=== PATIENT | female | born 1965 | race Caucasian/White ===

== ENCOUNTER 2023-01-10 14:49 | Emergency (ER) | payer MEDICAID, SELFPAY ==
[2023-01-10 15:15] VITALS: BP 141/81; PULSE 91; RESP 18; TEMP 36.6; O2SAT 98; BMI 17.8
--- NOTE | 2023-01-10 15:20 | XR_ITS ---
FINAL REPORT CLINICAL HISTORY: HIT IT TWO WEEKS AGO with a metal pet food bowl. FINDINGS: LEFT TIBIA AND FIBULA There is no acute fracture or dislocation. The joint spaces are intact. There is no soft tissue abnormality. IMPRESSION: No acute fracture Reviewed, Interpreted and Dictated by Josh Azul III, MD Transcribed by Yulia Costa Authenticated and [facility]
--- NOTE | 2023-01-10 15:27 | CA_ITS ---
FINAL REPORT TECHNIQUE: Ultrasound images of the deep venous system were obtained from the left groin to the calf veins. CLINICAL HISTORY: pain and edema in calf hx of DVT, Knot on lt mckinley after injury. COMPARISON: None FINDINGS: The deep venous system is normally compressible. Normal flow is identified. IMPRESSION: No evidence of left lower extremity DVT. Reviewed, Interpreted and Dictated by Josh Azul III, MD Transcribed by Verito Medina Authenticated and [facility]
--- NOTE | 2023-01-10 15:31 | EXP.UTC ---
Discharge Plan Disposition Patient Disposition: Home, Self-Care Condition: Good Prescriptions Prescriptions: No Action ketorolac 10 MG tablet 10 mg PO Q6H 5 Days Qty: 20 0RF Referrals Follow up/Referrals: Provider,Referral, MD [Primary Care Provider] - See instructions Activity Restrictions/Add. Instructions Additional Instructions/Restrictions: *weight bearing as tolerated *RICE, Rest the extremity, Ice 15-20 minutes 3-4 times daily, Compress- wear the benito wrap as discussed as much as possible to help reduce swelling and pain, Elevate the extremity when at rest *Benito wrap is for support and help control swelling, use it except in the shower. Be sure that is not to tight but not to loose either *Elevate when resting? *Ibuprofen 600-800mg every 6-8 hours as needed for pain an inflammation if you can take it . If need something more can take Tylenol in between doses of Ibuprofen to help Immediately follow up with your family doctor for new or worsening of symptoms, or no noticeable improvement over the next 3-5 days Clinical Impressions Clinical Impression: Contusion of leg, left Qualifiers: Encounter type: initial encounter Qualified Code(s): S80.12XA - Contusion of left lower leg, initial encounter Instructions Patient Instructions: Contusion, DI for Contusion, How To Perform RICE (Rest, Ice, Compress, Elevate) Discharge ED Provider: Tamia Valenzuela [facility] General Stated complaint: AO@home 12/27 LT leg pain w/ knot Mode of Arrival: Ambulatory Source of Information: Patient Limitations: No Limitations Time Seen by Provider: 01/10/23 15:31 Description of Symptoms (Recalled from Triage Doc. by RN): PATIENT C/O BRUISED KNOT TO LEFT MCKINLEY AFTER HITTING IT ON A METAL DOG BOWL 2 WEEKS AGO HEENT Symptoms (Recalled from RN notes): No Resp Symptoms (Recalled from RN notes): No Skin Symptoms (Recalled from RN notes): No MS Symptoms (Recalled from RN notes): Yes Functional Status (Recalled from RN notes): WNL History of Present Illness Provider Complaint: Patient states that she was trying to smack a metal bowl on the floor to stop her cats from fighting and it came back and hit her in the left mckinley area States that was two weeks ago and she is still having pain in the area with raised area on mckinley also having pain and tightness in calf area concerned she may have a DVT states that she has had one before and feels similar Related Data Previous Rx's Medication Instructions Recorded ketorolac 10 mg tablet 10 mg PO Q6H 5 days #20 tabs 10/09/18 Allergies Allergy/AdvReac Type Severity Reaction Status Date / Time citalopram [CITALOPRAM] Allergy Unknown NA-NAUSEA/V Verified 10/09/18 14:16 OMITING diclofenac [DICLOFENAC] Allergy Unknown RASH, SICK Verified 10/09/18 14:16 Sulfa (Sulfonamide Allergy Unknown SWELLS Verified 10/09/18 14:16 Antibiotics) THROAT [SULFA (SULFONAMIDE ANTIBIOTICS)] sulindac [SULINDAC] Allergy Unknown SICK Verified 10/09/18 14:16 Worker's Comp Is this a Worker's Comp case?: No [facility] Disclaimer: The information contained in this section may have been updated after the patient was seen, as this information can be updated by other users. Medical History (Updated 01/10/23 @ 16:22 by Tamia Valenzuela APRN) Anxiety Asthma COPD (chronic obstructive pulmonary disease) Depression History of anemia History of gastroesophageal reflux (GERD) Hyperlipidemia Hypertension Kidney stone Migraine Prediabetes Thyroid disease Urinary tract infection Surgical History (Updated 01/10/23 @ 15:31 by Bridget Clark RN) History of hysterectomy History of tonsillectomy Social History Smoking Status: Unknown if ever smoked alcohol intake: never current occupational status: other Travel in the last 8 weeks: None ROS Obtained: Yes All systems reviewed & no additional complaints except as documented and Yes Systems reviewed as appropriate & no addit
[2023-01-10 16:50] VITALS: BP 141/81; PULSE 91; RESP 18; TEMP 36.6; O2SAT 98
== END 2023-01-10 16:52 | disposition home or self-care (01) ==
PROVIDERS: Emergency Provider Nurse Practitioner
DX: S80.12XA Contusion of left lower leg, initial encounter (principal); J44.9 Chronic obstructive pulmonary disease, unspecified; I10 Essential (primary) hypertension; E78.5 Hyperlipidemia, unspecified; E03.9 Hypothyroidism, unspecified; F41.9 Anxiety disorder, unspecified; F32.A Depression, unspecified; W22.8XXA Striking against or struck by other objects, initial encounter
CPT/HCPCS: 73590; 93971; 99204; 99212; G0463

== ENCOUNTER 2023-11-19 11:38 | Emergency (ER) | payer MEDICAID, SELFPAY ==
[2023-11-19 12:10] VITALS: BP 138/98; PULSE 74; RESP 20; TEMP 36.8; O2SAT 99; BMI 20.2
[2023-11-19 12:37] VITALS: BP 138/98; PULSE 74; RESP 20; TEMP 36.8; O2SAT 99
--- NOTE | 2023-11-19 12:41 | EXP.UTC ---
Discharge Plan Disposition Patient Disposition: Home, Self-Care Condition: Good Prescriptions Prescriptions: New doxycycline hyclate 100 mg tablet 100 mg PO BID Qty: 20 0RF No Action atorvastatin 20 mg tablet 20 mg PO DAILY Patient Comments: TAKE 1/2 (ONE-HALF) TABLET BY MOUTH ONCE DAILY famotidine 40 mg tablet 40 mg PO DAILY Patient Comments: TAKE 1 TABLET BY MOUTH NIGHTLY midodrine 5 mg tablet 5 mg PO DAILY Patient Comments: TAKE 1 TABLET BY MOUTH TWICE DAILY pantoprazole 40 mg tablet,delayed release (DR/EC) 40 mg PO DAILY Patient Comments: TAKE 1 TABLET BY MOUTH ONCE DAILY Referrals Follow up/Referrals: Provider,Referral, MD [Primary Care Provider] - See instructions Activity Restrictions/Add. Instructions Additional Instructions/Restrictions: Seperate your doses of pantoprazole and doxy by at least 1 hour Take medication as prescribed Follow up with your Family Doctor if no improvement or any worsening of symptoms Return if needed Straight to ER if any life threatening symptoms Clinical Impressions Clinical Impression: Infected tick bite Instructions Patient Instructions: How to Remove a Tick, Protect Yourself from Tickborne Illnesses, Doxycycline Discharge ED Provider: Tamia Valenzuela [facility] General Stated complaint: infected tick bite, upper R inner thigh Mode of Arrival: Ambulatory Source of Information: Patient Limitations: No Limitations Time Seen by Provider: 11/19/23 12:41 Description of Symptoms (Recalled from Triage Doc. by RN): PATIENT C/O TICK BITE TO RIGHT INNER THIGH SINCE TUESDAY HEENT Symptoms (Recalled from RN notes): No Resp Symptoms (Recalled from RN notes): No Skin Symptoms (Recalled from RN notes): Yes MS Symptoms (Recalled from RN notes): No Functional Status (Recalled from RN notes): WNL History of Present Illness Provider Complaint: Patient states that she has hx of lyme disease States that she had a tick bite on her right inner thigh on Tuesday States she didnt find it till and by that time she was already red from the bite States that she thought it would get better but hasnt so she came in to get some antibiotics to help Related Data Home Medications Medication Instructions Recorded Confirmed atorvastatin 20 mg tablet 20 mg PO DAILY 11/19/23 11/19/23 famotidine 40 mg tablet 40 mg PO DAILY 11/19/23 11/19/23 midodrine 5 mg tablet 5 mg PO DAILY 11/19/23 11/19/23 pantoprazole 40 mg tablet,delayed 40 mg PO DAILY 11/19/23 11/19/23 release Previous Rx's Medication Instructions Recorded doxycycline hyclate 100 mg tablet 100 mg PO BID #20 tabs 11/19/23 Allergies Allergy/AdvReac Type Severity Reaction Status Date / Time citalopram [CITALOPRAM] Allergy Unknown NA-NAUSEA/V Verified 10/09/18 14:16 OMITING diclofenac [DICLOFENAC] Allergy Unknown RASH, SICK Verified 10/09/18 14:16 Sulfa (Sulfonamide Allergy Unknown SWELLS Verified 10/09/18 14:16 Antibiotics) THROAT [SULFA (SULFONAMIDE ANTIBIOTICS)] sulindac [SULINDAC] Allergy Unknown SICK Verified 10/09/18 14:16 Worker's Comp Is this a Worker's Comp case?: No [facility] Disclaimer: The information contained in this section may have been updated after the patient was seen, as this information can be updated by other users. Medical History (Updated 11/19/23 @ 12:54 by Tamia Valenzuela APRN) Depression Anxiety Thyroid disease History of anemia Urinary tract infection Kidney stone History of gastroesophageal reflux (GERD) Migraine Prediabetes COPD (chronic obstructive pulmonary disease) Asthma Hyperlipidemia Hypertension Surgical History (Updated 01/10/23 @ 15:31 by Bridget Clark RN) History of tonsillectomy History of hysterectomy Social History (Updated 01/10/23 @ 17:57 by Tamia Valenzuela APRN) Smoking Status: Unknown if ever smoked alcohol intake: never current occupational status: other Travel in the last 8 weeks: None ROS Obtained: Yes All systems reviewed & no additional complaints except as documented and Yes Systems reviewed as appropriate & no additional complaints except as documented Constitutional Constitutional: Reports system reviewed and no additional complaints, except as documented and Reports as per HPI Cardiovascular Cardiovascular: Reports system reviewed and no additional complaints, except as documented and Reports as per HPI Respiratory Respiratory: Reports system reviewed and no additional complaints, except as documented and Reports as per HPI Gastrointestinal Gastrointestingal: Reports system reviewed and no additional complaints, except as documented and as per HPI Integumentary/Breasts Skin/Breast: Reports system reviewed and no additional complaints, except as documented, Reports as per HPI and Reports other (red tick bite on right inner thigh area) Physical Exam General General appearance: alert and in no apparent distress ENT ENT exam: Present mucous membranes moist Respiratory Respiratory exam: Present normal lung sounds bilaterally; Absent respiratory distress or wheezes Cardiovascular Cardiovascular exam: Present regular rate, normal rhythm and normal heart sounds Neurological Exam Neurological exam: Present alert, oriented X3 and normal gait Skin Skin exam: Present other Expanded Skin Exam Description: Present erythematous Body image: 1. red raised warm area noted from where she has removed tick on and has hx of lyme disease in past Medical Decision Making Benjy Inquiry Pt receiving controlled substance: No Benjy was queried for this patient: No Vital Signs: 11/19/23 12:10 11/19/23 12:37 Temperature 98.2 F 98.2 F Temperature Source Oral Pulse Rate 74 Pulse Rate [Left Brachial] 74 Respiratory Rate 20 20 Blood Pressure 138/98 H Blood Pressure [Left Arm] 138/98 H Blood Pressure Mean [Left Arm] 111 Blood Pressure Source [Left Arm] Automatic Cuff Blood Pressure Position [Left Arm] Sitting 02 Sat by Pulse Oximetry 99 Oxygen Delivery Method Room Air
== END 2023-11-19 12:58 | disposition home or self-care (01) ==
PROVIDERS: Emergency Provider Nurse Practitioner
DX: S70.361A Insect bite (nonvenomous), right thigh, initial encounter (principal); W57.XXXA Bitten or stung by nonvenomous insect and other nonvenomous arthropods, initial encounter
CPT/HCPCS: 99212; 99214; G0463

== ENCOUNTER 2024-10-07 13:01 | Emergency (ER) | payer MEDICAID, SELFPAY ==
[2024-10-07] VITALS (12 sets, daily range): BP systolic 134–164; BP diastolic 93–112; PULSE 77–104; RESP 16–20; TEMP 36.6–37.1; O2SAT 96–100; BMI 18.8
--- NOTE | 2024-10-07 13:22 | PC.NURSE ---
called [facility] [place] to send a state game warden to come talk to pt per patient's request.
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
--- NOTE | 2024-10-07 13:52 | PC.NURSE ---
[employer] at bedside
[2024-10-07] MEDS: METHOCARBAMOL 500MG TABLET 500 MG PO (14:00)
[2024-10-07] MEDS: ACETAMINOPHEN 500MG TAB 1000 MG PO (14:00)
--- NOTE | 2024-10-07 14:04 | PC.NURSE ---
don aware pt refused ibuprofen
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
== END 2024-10-07 16:39 | disposition home or self-care (01) ==
PROVIDERS: Emergency Provider Student in an Organized Health Care Education/Training Program; PCP Pediatrics
DX: T74.11XA Adult physical abuse, confirmed, initial encounter (principal); M79.642 Pain in left hand; M25.532 Pain in left wrist; R10.9 Unspecified abdominal pain; R10.2 Pelvic and perineal pain; R07.89 Other chest pain; M54.9 Dorsalgia, unspecified; G89.11 Acute pain due to trauma; I10 Essential (primary) hypertension; R00.0 Tachycardia, unspecified; Y04.8XXA Assault by other bodily force, initial encounter; Y07.031 Male partner, former, perpetrator of maltreatment and neglect
CPT/HCPCS: 70450; 70486; 71250; 72125; 72128; 72131; 72192; 73090; 73110; 73130; 99284